=== PATIENT | female | born 1955 | race Caucasian/White ===

== ENCOUNTER 2020-08-18 03:00 | Outpatient (REF) | payer OTHER, SELFPAY ==
[2020-08-19 14:44] LABS: Amphetamine Screen Urine Not Detected (Not Detect); Barbiturates, Urine Not Detected (Not Detect); Benzodiazepines Screen Urine Not Detected (Not Detect); Cannabinoid Screen Urine POSITIVE (Not Detect); Cocaine Screen Urine Not Detected (Not Detect); Opiate Screen Urine Not Detected (Not Detect); Phencyclidine Screen Urine Not Detected (Not Detect)
== END 2020-08-18 03:01 | disposition home or self-care (01) ==
LOC: HO.LNP 03:00
PROVIDERS: Visit Provider Family Medicine
DX: Z00.00 Encounter for general adult medical examination without abnormal findings (principal); M54.30 Sciatica, unspecified side; M25.551 Pain in right hip
CPT/HCPCS: 80307

== ENCOUNTER 2021-02-05 07:56 | Outpatient (REF) | payer OTHER, SELFPAY ==
[2021-02-05 11:34] LABS: Anion Gap 11 (12-20); Blood Urea Nitrogen 18 mg/dL (9-16); Calcium 9.4 mg/dL (8.4-10.2); Carbon Dioxide 29 mmol/L (22-29); Chloride 107 mmol/L (96-108); Cholesterol 145 mg/dL; Estimated Glomerular Filt Rate > 60; Glucose Random 104 mg/dL (60-115); HDL Cholesterol 44 mg/dL; LDL Cholesterol Calculated 85 mg/dl; Potassium 4.6 mmol/L (3.3-5.1); Sodium 142 mmol/L (135-145); Triglycerides 82 mg/dL
== END 2021-02-05 07:57 | disposition home or self-care (01) ==
LOC: HO.WFDLDS 07:56
PROVIDERS: Visit Provider Family Medicine
DX: E78.5 Hyperlipidemia, unspecified (principal); I10 Essential (primary) hypertension
CPT/HCPCS: 36415; 80048; 80061

== ENCOUNTER 2021-07-23 10:00 | Outpatient (RCR) | payer OTHER, SELFPAY ==
--- NOTE | 2021-05-20 16:41 | MHC.PT.EP ---
[facility] [place] [facility] [place] [facility] [place] [facility] [address] [phone] F: [phone] F: [phone] F: [phone] F: [phone] Physical Therapy Plan of Care Date of Evaluation: Date of Surgery: Diagnosis: R sided sciatica. Assessment: Pt is a 65 y/o female referred to PT for eval and treat of R sided sciatica who presents with lumbopelvic dysfunction resulting in decreased tolerance and ability to perform ambulatory, standing and sitting tasks for duration as well as lifting objects of weight, as well as disturbed sleep secondary to decreased hip and core strength, decreased trunk ROM as well as decreased posture, increased tissue tension, pelvic asymmetry and pain. Pt is deemed an appropriate candidate to receive skilled PT in order to address her physical limitations to improve her functional ability. Frequency and Duration: The patient will be seen 2 x / wk x 5 wks. Short Term Goals: initiate HEP. Improve baseline pain with activity to < 6/10; initial 9/10. LE radicular Sx abolished. Prison Goals: I with HEP. Pt will be able to walk long distances with some pain; initial: unable to walk even short distances. Pt will be able to sit > 1 hour in non preferred seat. Treatment Plan: Modalities to reduce pain, spasms and effusion. Manual therapy to restore motion and function. Therapeutic exercise to improve strength and flexibility. Neuromuscular re-education for posture and balance. Therapeutic activities to return to functional activities of daily living. Electronically signed by: Nicolas Torres PT. Please sign and return to therapist. Thank you for your referral.
--- NOTE | 2021-07-23 20:08 | MHC.PT.DC ---
[facility] [place] Office [place] Office [place] [facility] [address] Cope [address] [phone] F: [phone] F: [phone] F: [phone] F: [phone] Physical Therapy Discharge Report Diagnosis: R sided sciatica. Date of Surgery: Date of Evaluation: 05/20/21 Date of Discharge: 07/23/21 Treatments to Date: 12 Cancellations to Date: No Shows to Date: Discharge Status: Achieved Goals Improved Function Independent with HEP Discharge Summary: Cesilia has met all of her therapeutic goals and is in agreement with DC at this time; she reports no pain or radicular/ sciatic Sx for 3 weeks. Electronically signed by: Nicolas Torres PT. Please sign and return to therapist. Thank you for your referral.
== END 2021-07-23 20:08 | disposition home or self-care (01) ==
LOC: HO.PTCHIC 10:00
PROVIDERS: PCP Family Medicine; Visit Provider Family Medicine
DX: M54.31 Sciatica, right side (principal)
CPT/HCPCS: 97014; 97110; 97140; 97161

== ENCOUNTER 2021-08-01 08:27 | Emergency (ER) | payer OTHER, SELFPAY ==
--- NOTE | ~2021-08-01 | XR_ITS ---
EXAMINATION: XR SHOULDER, RIGHT CLINICAL INFORMATION: Right shoulder pain. COMPARISON: None TECHNIQUE: AP external rotation, Grashey, scapular Y, and axillary views of the right shoulder. FINDINGS: Mild right glenohumeral and acromioclavicular degenerative joint changes are seen. Sclerotic densities are seen along the inferior margin of the bony glenoid. A small smoothly marginated concave deformity is seen at the level the greater tuberosity. Mild calcifications are seen at the rotator cuff insertion. XR/XR shoulder RT min 2V IMPRESSION: 1. Mild degenerative joint changes. Sclerotic densities along the inferior margin of the bony glenoid do not appear acute and could be degenerative in nature and/or secondary to old injury/dislocation. Greater tuberosity findings could be secondary to prior dislocation as well. Correlate with patient history. 2. Mild calcific tendinosis of the rotator cuff insertion.
[2021-08-01 09:02] VITALS: BP 182/101; PULSE 64; RESP 18; TEMP 36.7; O2SAT 97; BMI 33.2
--- NOTE | 2021-08-01 09:41 | ED_ITS ---
HPI - General Adult General Chief complaint: Fall Stated complaint: FALL R SHOULDER INJ Time Seen by Provider: 08/01/21 08:30 Source: patient Mode of arrival: ambulatory Limitations: no limitations History of Present Illness HPI narrative: 65-year-old female with past medical history of asthma, depression, diabetes, GERD, gout, hyperlipidemia, hypertension, hyperthyroidism is here today after sustaining fall yesterday. Patient reports that she recently has been going to physical therapy and been getting adjustment to her right hip. She is feeling better and started to walking better, however she reports that she is on used to not compensating for her weaker right side and she tripped with her right foot and fell. Patient denies presyncope or syncope. Denies hitting head. Patient reports she fell onto her hands, she is right handed, she reports that she was trying to support herself mostly with her right hand. Denies any wrist pain, however reports right shoulder pain. Patient was taking ibuprofen at home with some minimal effect. Patient denies any other concerning symptoms. Onset (ago): day(s) Location: right and upper extremity Radiation: non-radiation Severity: moderate Related Data Home Medications Medication Instructions Recorded Confirmed buspirone 30 mg tablet 30 mg PO BID 12/04/20 escitalopram oxalate 10 mg tablet 0 mg PO 12/04/20 lorazepam 1 mg tablet 0 mg PO 12/04/20 Previous Rx's Medication Instructions Recorded furosemide 20 mg tablet 20 mg PO DAILY #3 tab 10/06/20 atorvastatin 40 mg tablet 40 mg PO DAILY #90 tab 12/29/20 losartan 100 mg tablet 100 mg PO DAILY #90 tab 02/10/21 naproxen 500 mg tablet 500 mg PO BID PRN 90 Days #180 tab 02/27/21 omeprazole 20 mg capsule,delayed 20 mg PO DAILY 90 Days #90 cap 02/27/21 release cyclobenzaprine 10 mg tablet 10 mg PO TID PRN 10 Days #30 tab 05/12/21 diclofenac sodium 1 % topical gel 4 g TOPICAL QID PRN 30 Days #100 g 06/10/21 (Voltaren Arthritis Pain) pregabalin 300 mg capsule (Lyrica) 300 mg PO BID 30 Days #60 cap 07/14/21 metoprolol succinate 25 mg 25 mg PO DAILY #90 tab 07/20/21 tablet,extended release 24 hr levothyroxine 175 mcg tablet 175 mcg PO DAILY 90 Days #90 tab 07/24/21 ibuprofen 600 mg tablet 600 mg PO Q8H PRN #20 tab 08/01/21 oxycodone 5 mg tablet 5 mg PO Q8H PRN #5 tab 08/01/21 Allergies Allergy/AdvReac Type Severity Reaction Status Date / Time duloxetine [Cymbalta] Allergy Intermediate Swelling Verified 08/01/21 09:04 fluticasone [Advair Diskus] Allergy Unknown swelling Verified 08/01/21 09:04 of throat Review of Systems Review of Systems: Constitutional : No Weight loss, No Fever, No Chills, No Night Sweats, No Fatigue, No Malaise ENT/Mouth : No Hearing loss, No Ear Pain, No Nasal Congestion, No Sinus Pain, No Hoarseness, No sore throat, No Rhinorrhea, No Swallowing Difficulty Eyes: No Eye Pain, No Swelling, No Redness, No Foreign Body, No Discharge, No Vision Changes Cardiovascular : No Chest Pain, No SOB, No Dyspnea on Exertion, No Orthopnea, No Edema, No Palpitations Respiratory : No Cough, No Sputum, No Wheezing, No Smoke Exposure, No Dyspnea Gastrointestinal : No Nausea, No Vomiting, No Diarrhea, No Constipation, No abdominal Pain, No Hematochezia, No Melena Genitourinary : no irregular bleeding, No Dysuria, No Urinary Frequency, No Hematuria, No Urinary Incontinence, No Urgency, No Flank Pain, No Urinary Flow Changes, No Hesitancy Musculoskeletal : joint pain, Myalgias, No Joint Swelling, right shoulder pain Skin : No Skin Lesions, No rash Neuro : No Weakness, No Numbness, No Paresthesias, No Loss of Consciousness, No Dizziness, No Headache Yes all other systems are reviewed and are negative [facility] Past Medical History Medical History (Updated 08/01/21 @ 10:23 by Tiffany Babin [facility]) Anxiety Asthma Depressed Diabetes mellitus with neuropathy GERD (gastroesophageal reflux disease) Gout Hematuria Hyperlipidemia Hypertension Hypothyroidism Insomnia Syncope Tinnitus Vertigo Surgical History History of sleeve gastrectomy Social History Social History (Updated 02/10/21 @ 08:33 by LAKHWINDER Resendez) Alcohol intake: current Advance Directives: Yes Advance Directives Information Provided: Yes Advance Directives on File: No Patient : No Physical Exam Vital Signs: Vital Signs: Last Vital Signs Temp 98.1 F 08/01/21 09:02 Pulse 64 08/01/21 09:02 Resp 18 08/01/21 09:02 BP 182/101 H 08/01/21 09:02 Pulse Ox 97 08/01/21 09:02 Body Mass Index 33.2 Const: General: healthy appearing, no acute distress and well developed Nutritional Appearance: well nourished Orientation/consciousness: patient oriented x3 HENMT: Head: Yes normal to inspection, Yes normocephalic and Yes atraumatic Neck: Neck: Yes normal visual inspection, Yes full ROM and Yes trachea midline Thyroid: Thyroid normal Resp: Effort & Inspection: normal respiratory effort and able to speak in complete sentences Auscultation: clear to auscultation bilaterally Cardio: Rate: regular rate Rhythm: regular rhythm Heart sounds: S1 normal heart sound present and S2 normal heart sound present GI: Inspection: Yes normal to inspection, No distended and Yes obesity Palpation (GI): Soft to palpation, nontender, no guarding and No hepatosplenomegaly present Auscultation: normal bowel sounds Skin: General skin exam: elasticity normal, turgor normal and dry skin Neuro: General: patient oriented x3 Extrem: Right upper extremity: normal capillary refill and shoulder/upper arm (Decreased ROM); No no edema and joint enlargement noted Course Course Course Narrative: 65-year-old female is here today after sustaining fall. Patient tripped and fell onto her bilateral hands, she is right-handed so she supported her body with her right hand mostly. Today reports of having decreased ROM in her right shoulder and severe discomfort. Upon exam patient is unable to raise her right arm. Normal pulses, no paresthesia. Will do x-ray. Reevaluation(s) Reevaluation #1: Right shoulder x-ray negative for any acute findings. Old degenerative changes. Will send patient home with ibuprofen and oxycodone. She will follow-up with her PCP. Will give for referral to Orthopedic surgeon to follow-up with. Patient is agreeable to this plan. Medical Decision Making Imaging Data Right shoulder x-ray: Attestation: I personally reviewed and interpreted this imaging study as follows: Radiologist's impression: IMPRESSION: 1. Mild degenerative joint changes. Sclerotic densities along the inferior margin of the bony glenoid do not appear acute and could be degenerative in nature and/or secondary to old injury/dislocation. Greater tuberosity findings could be secondary to prior dislocation as well. Correlate with patient history. 2. Mild calcific tendinosis of the rotator cuff insertion. Discharge Plan Discharge Clinical Impression: Muscle strain Acute shoulder pain Qualifiers: Laterality: right Qualified Code(s): M25.511 - Pain in right shoulder Patient Disposition: Home, Self-Care Instructions: Shoulder Sprain (ED), Shoulder Pain (ED), Shoulder Immobilizer (ED) Additional Instructions: You were seen here today after a fall. You injured your right shoulder and x- ray showed no acute findings. Please follow-up with your primary care provider for possible physical therapy. You will be given a phone number to orthopedic surgeon for follow-up as well. You were given non steroidal anti-inflammatory medication as well as oxycodone. Please make sure that you are not driving when taking this medication. You may return to emergency department if her symptoms will get worse or if you experience any additional concerning symptoms. Prescriptions: New ibuprofen 600 mg tablet 600 mg PO Q8H PRN (Reason: pain) Qty: 20 RF: 0 oxycodone 5 mg tablet 5 mg PO Q8H PRN (Reason: pain) Qty: 5 RF: 0 No Action furosemide 20 mg tablet 20 mg PO DAILY Qty: 3 RF: 0 atorvastatin 40 mg tablet 40 mg PO DAILY Qty: 90 RF: 2 naproxen 500 mg tablet 500 mg PO BID PRN (Reason: pain) 90 Days Qty: 180 RF: 2 omeprazole 20 mg capsule,delayed release(DR/EC) 20 mg PO DAILY 90 Days Qty: 90 RF: 1 pregabalin [Lyrica] 300 mg capsule 300 mg PO BID 30 Days Qty: 60 RF: 0 metoprolol succinate 25 mg tablet extended release 24 hr 25 mg PO DAILY Qty: 90 RF: 0 levothyroxine 175 mcg tablet 175 mcg PO DAILY 90 Days Qty: 90 RF: 3 losartan 100 mg tablet 100 mg PO DAILY Qty: 90 RF: 1 diclofenac sodium [Voltaren Arthritis Pain] 1 % gel 4 g topical QID PRN (Reason: pain) 30 Days Qty: 100 RF: 3 escitalopram oxalate 10 mg tablet 0 mg PO RF: 0 buspirone 30 mg tablet 30 mg PO BID RF: 0 lorazepam 1 mg tablet 0 mg PO RF: 0 cyclobenzaprine 10 mg tablet 10 mg PO TID PRN (Reason: muscle spasm) 10 Days Qty: 30 RF: 0 Referrals: Rhett Lu MD [Physician] - 2 days Adam Rodriguez MD [Primary Care Provider] - 2 days Interventions: ED Discharge Assessment Last Done: 08/01/21 10:28 Discharge Date/Time: 08/01/21 10:33
== END 2021-08-01 10:33 | disposition home or self-care (01) ==
PROVIDERS: Emergency Provider Emergency Medicine; PCP Family Medicine
DX: M25.511 Pain in right shoulder (principal); M79.642 Pain in left hand; M79.641 Pain in right hand; I10 Essential (primary) hypertension; Z98.84 Bariatric surgery status; Z79.899 Other long term (current) drug therapy
CPT/HCPCS: 73030; 99283

== ENCOUNTER 2021-08-19 13:35 | Outpatient (REF) | payer OTHER, SELFPAY | END 2021-08-19 13:36 | disposition home or self-care (01) | LOC: HO.LAB 13:35 | PROVIDERS: Visit Provider Hospitalist | DX: Z20.822 Contact with and (suspected) exposure to COVID-19 (principal); R06.02 Shortness of breath; Z86.16 Personal history of COVID-19 | CPT/HCPCS: U0003; U0005 ==

== ENCOUNTER 2021-08-24 17:36 | Outpatient (REF) | payer OTHER, SELFPAY | END 2021-08-24 17:37 | disposition home or self-care (01) | LOC: HO.LNP 17:36 | PROVIDERS: Visit Provider Hospitalist | DX: Z03.818 Encounter for observation for suspected exposure to other biological agents ruled out (principal); Z20.822 Contact with and (suspected) exposure to COVID-19 | CPT/HCPCS: U0003; U0005 ==

== ENCOUNTER 2021-08-27 14:06 | Outpatient (REF) | payer OTHER, SELFPAY ==
[2021-08-27 14:48] LABS: Amphetamine Screen Urine Not Detected (Not Detect); Barbiturates, Urine Not Detected (Not Detect); Benzodiazepines Screen Urine Not Detected (Not Detect); Cannabinoid Screen Urine Not Detected (Not Detect); Cocaine Screen Urine Not Detected (Not Detect); Fentanyl, urine Not Detected (Not Detect); Opiate Screen Urine Not Detected (Not Detect); Phencyclidine Screen Urine Not Detected (Not Detect)
== END 2021-08-27 14:07 | disposition home or self-care (01) ==
LOC: HO.LNP 14:06
PROVIDERS: Visit Provider Hospitalist
DX: Z02.1 Encounter for pre-employment examination (principal)
CPT/HCPCS: 80307

== ENCOUNTER 2022-02-18 07:44 | Outpatient (REF) | payer OTHER, SELFPAY ==
[2022-02-18 12:14] LABS: Creatinine Urine 138.83 mg/dL; Microalbum/Creatinine Ratio Ur 15.1 ug/mg cr
[2022-02-18 12:15] LABS: Alanine Aminotransferase 15 U/L (0-31); Albumin Level 4.4 g/dL (3.5-5.0); Alkaline Phosphatase 48 U/L (39-117); Anion Gap 12 (12-20); Aspartate Amino Transferase 17 U/L (5-31); Blood Urea Nitrogen 14 mg/dL (9-16); Carbon Dioxide 27 mmol/L (22-29); Chloride 109 mmol/L (96-108); Cholesterol 141 mg/dL; Estimated Glomerular Filt Rate > 60; Glucose Fasting 102 mg/dL (60-99); HDL Cholesterol 43 mg/dL; LDL Cholesterol Calculated 85 mg/dl; Sodium 144 mmol/L (135-145); Total Protein 7.2 g/dL (6.5-8.0); Triglycerides 66 mg/dL
== END 2022-02-18 07:45 | disposition home or self-care (01) ==
LOC: HO.WFDLDS 07:44
PROVIDERS: Visit Provider Family Medicine
DX: Z00.00 Encounter for general adult medical examination without abnormal findings (principal); I10 Essential (primary) hypertension
CPT/HCPCS: 36415; 80053; 80061; 82043; 84439; 84443

== ENCOUNTER 2022-04-30 07:34 | Outpatient (REF) | payer OTHER, SELFPAY ==
[2022-04-30 11:31] LABS: Alanine Aminotransferase 13 U/L (0-31); Albumin Level 4.5 g/dL (3.5-5.0); Alkaline Phosphatase 46 U/L (39-117); Anion Gap 13 (12-20); Aspartate Amino Transferase 17 U/L (5-31); Bilirubin Total 0.7 mg/dL (0.0-1.0); Blood Urea Nitrogen 19 mg/dL (9-16); Calcium 9.8 mg/dL (8.4-10.2); Carbon Dioxide 25 mmol/L (22-29); Chloride 107 mmol/L (96-108); Estimated Glomerular Filt Rate 55; Glucose Fasting 102 mg/dL (60-99); Potassium 3.8 mmol/L (3.3-5.1); Sodium 141 mmol/L (135-145); Total Protein 7.2 g/dL (6.5-8.0)
[2022-04-30 11:33] LABS: Estimated Average Glucose 111 mg/dL; Hemoglobin A1c % 5.5 %
== END 2022-04-30 07:35 | disposition home or self-care (01) ==
LOC: HO.WFDLDS 07:34
PROVIDERS: Visit Provider Family Medicine
DX: R73.01 Impaired fasting glucose (principal); I10 Essential (primary) hypertension; R73.9 Hyperglycemia, unspecified
CPT/HCPCS: 36415; 80048; 80053; 83036